=== PATIENT | female | born 1935 | race Hispanic/Latino ===

== ENCOUNTER 2017-05-25 08:17 | Day surgery (SDC) | payer MEDICARE ==
[2017-05-18 11:51] VITALS: BMI 24.7
[2017-05-25 09:17] LABS: BLOOD UREA NITROGEN 11 mg/dL (7-21); CALCIUM 9.7 mg/dL (8.4-10.5); GFR AFRICAN-AMERICAN > 60; GFR NON-AFRICAN AMERICAN > 60
[2017-05-25 09:18] LABS: BASO # 0.03 K/mm3 (0.0-2.0); BASO % 0.3 % (0.0-3.0); EOS # 0.1 (0.0-0.7); EOS % 0.7 % (1.5-5.0); GRAN # 8.51 (1.4-6.5); GRAN % 75.1 % (50.0-68.0); HEMOGLOBIN 11.3 g/dL (12.0-16.0); LYMPH # 1.2 (1.2-3.4); LYMPH % 10.7 % (22.0-35.0); MEAN CELL VOLUME 85.3 fl (80.0-105.0); MEAN CORPUSCULAR HEMOGLOBIN 27.6 pg (25.0-35.0); MEAN CORPUSCULAR HGB CONC 32.4 g/dl (31.0-37.0); MEAN PLATELET VOLUME 9.9 fl (7.0-11.0); MONO # 1.5 (0.1-0.6); MONO % 13.2 % (1.0-6.0); RBC 4.09 10^6/uL (3.5-6.1); RED CELL DISTRIBUTION WIDTH 14.1 % (11.5-14.5); WHITE BLOOD COUNT 11.3 10^3/ul (4.5-11.0)
[2017-05-25 09:26] LABS: INR 1.2 (0.93-1.08); PARTIAL THROMBOPLASTIN TIME 29.5 Seconds (25.1-36.5); PROTHROMBIN TIME 13.9 SECONDS (9.4-12.5)
[2017-05-25] MEDS ORDERED: Midazolam 2 MG/2 ML VIAL ONE (09:53)
[2017-05-25] MEDS ORDERED: Lidocaine 1% Inj (20ml) ONE (09:54)
[2017-05-25] MEDS ORDERED: Oxycodone/Acetaminophen 5/325 mg Tab PO PRN (11:10)
[2017-05-25] MEDS ORDERED: Sodium Chloride 0.45% 1,000 ML IV SCH (11:15)
[2017-05-25 12:07] VITALS: RESP 20; TEMP 98.2; O2SAT 98
[2017-05-25 13:04] VITALS: BP 112/66; PULSE 57
--- NOTE | 2017-05-25 19:13 | CT ---
PROCEDURE: CT guided liver biopsy. HISTORY: Pulmonary and hepatic metastases. Unknown primary. Needs liver biopsy. PHYSICIAN(S): Rasheed Hernández MD. TECHNIQUE: The relative risks and indications of the procedure were explained to the patient and her son and consent obtained. The patient was placed supine on the CT scanner and preliminary images through the liver obtained. Conscious sedation and monitoring were provided throughout the procedure by a nurse. There are multiple low-attenuation masses in both lobes of the liver.. A subxyphoid approach was selected and the area prepped and draped in the usual sterile fashion. 1% Xylocaine was used to anesthetize the skin and soft tissues. A 17-gauge guiding needle was advanced into the outflow mass in the left lobe of the liver. Its position was confirmed with CT. Using coaxial technique, multiple core biopsies were obtained. The postprocedure images show no evidence of significant hemorrhage. IMPRESSION: 1. CT-guided liver biopsy as described above.
== END 2017-05-25 13:30 | disposition home or self-care (01) ==
LOC: SDS 08:17
PROVIDERS: ATTEND Radiology Vascular & Interventional Radiology
DX: C78.7 Secondary malignant neoplasm of liver and intrahepatic bile duct (principal); C19 Malignant neoplasm of rectosigmoid junction; C78.00 Secondary malignant neoplasm of unspecified lung; Z87.891 Personal history of nicotine dependence
CPT/HCPCS: 36415; 47000; 77012; 80048; 85025; 85610; 85730; 88307; 99152; J2250; J2405; J3010; J7030; J7120

== ENCOUNTER 2017-06-14 10:25 | Day surgery (SDC) | payer MEDICARE ==
[2017-06-13 07:40] VITALS: BMI 25.3
[2017-06-14 11:39] LABS: BASO # 0.02 K/mm3 (0.0-2.0); BASO % 0.1 % (0.0-3.0); EOS % 0.1 % (1.5-5.0); GRAN # 12.31 (1.4-6.5); GRAN % 82.8 % (50.0-68.0); HEMOGLOBIN 10.3 g/dL (12.0-16.0); LYMPH # 1.1 (1.2-3.4); LYMPH % 7.3 % (22.0-35.0); MEAN CELL VOLUME 82.5 fl (80.0-105.0); MEAN CORPUSCULAR HEMOGLOBIN 27.2 pg (25.0-35.0); MEAN PLATELET VOLUME 9.3 fl (7.0-11.0); MONO # 1.4 (0.1-0.6); MONO % 9.7 % (1.0-6.0); RBC 3.78 10^6/uL (3.5-6.1); RED CELL DISTRIBUTION WIDTH 15.9 % (11.5-14.5); WHITE BLOOD COUNT 14.9 10^3/ul (4.5-11.0)
[2017-06-14 11:42] LABS: INR 1.31 (0.93-1.08); PARTIAL THROMBOPLASTIN TIME 26.9 Seconds (25.1-36.5); PROTHROMBIN TIME 15.2 SECONDS (9.4-12.5)
[2017-06-14] MEDS ORDERED: Propofol 10 mg/ml Inj (20 ML) ONE ×2 (12:11→12:57)
[2017-06-14] MEDS ORDERED: Sodium Chloride 0.9% 1,000 ML IV SCH (13:30)
[2017-06-14 14:05] VITALS: O2SAT 98
[2017-06-14 14:31] VITALS: BP 152/71; PULSE 74; RESP 18; TEMP 98.3
== END 2017-06-14 15:28 | disposition home or self-care (01) ==
LOC: ENDO 10:25
PROVIDERS: ATTEND Internal Medicine Gastroenterology
DX: C18.7 Malignant neoplasm of sigmoid colon (principal); K21.0 Gastro-esophageal reflux disease with esophagitis; K29.50 Unspecified chronic gastritis without bleeding; K44.9 Diaphragmatic hernia without obstruction or gangrene; K57.30 Diverticulosis of large intestine without perforation or abscess without bleeding; K64.8 Other hemorrhoids
CPT/HCPCS: 36415; 43239; 45380; 85025; 85610; 85730; 88305; 88312; J0171; J2704; J7040 ×2